=== PATIENT | male | born 1970 | race Caucasian/White ===

== ENCOUNTER 2020-07-31 09:44 | Emergency (ER) | payer SELFPAY ==
[~2020-07-31] VITALS: Ht 165.1 cm; Wt 70.5 kg
[2020-07-31] MEDS ORDERED: NAPR250T4 PO (09:53)
[2020-07-31] MEDS ORDERED: IBUP-2759 PO (09:53)
[2020-07-31] MEDS ORDERED: ACET-66 PO (09:53)
[2020-07-31 13:33] VITALS: BP 119/72
== END 2020-07-31 13:39 | disposition home or self-care (01) ==
LOC: EMS 09:49
DX: S86.811A Strain of other muscle(s) and tendon(s) at lower leg level, right leg, initial encounter (principal); F12.90 Cannabis use, unspecified, uncomplicated; Z79.899 Other long term (current) drug therapy; X50.9XXA Other and unspecified overexertion or strenuous movements or postures, initial encounter; Y93.89 Activity, other specified; Y92.89 Other specified places as the place of occurrence of the external cause; Y99.8 Other external cause status
CPT/HCPCS: 29505

== ENCOUNTER 2021-04-12 09:15 | Emergency (ER) | payer OTHER ==
[~2021-04-12] VITALS: Ht 165.1 cm; Wt 72.7 kg
[~2021-04-12 09:15] MED LIST: ACET-3385 PO; IBUP-2759 PO; NAPR-1197 PO
[2021-04-12] MEDS ORDERED: MORPHINE SULFATE 4 MG/ML SYRINGE IVP ONE (10:15)
[2021-04-12] MEDS ORDERED: ONDANSETRON HCL 4 MG/2 ML VIAL IVP ONE (10:15)
[2021-04-12 10:43] LABS: BASOPHILS % (AUTO) 0.9 % (0.0-2.0); EOSINOPHILS % (AUTO) 1.8 % (1.0-6.0); HEMATOCRIT 45.6 % (41-53); HEMOGLOBIN 15.2 g/dL (13.5-17.5); LYMPHOCYTES # (AUTO) 1.7 K/uL (1.0-4.8); LYMPHOCYTES % (AUTO) 37.2 % (22.0-44.0); MEAN CORPUSCULAR HEMOGLOBIN 28.7 pg (26.0-34.0); MEAN CORPUSCULAR HGB CONC 33.4 G/dL (31.0-37.0); MEAN CORPUSCULAR VOLUME 86 fL (80-100); MONOCYTES # (AUTO) 0.4 K/uL (0.1-1.0); MONOCYTES % (AUTO) 9.1 % (2.0-9.0); NEUTROPHILS # (AUTO) 2.4 K/uL (1.8-7.7); PLATELET COUNT (AUTO) 267 K/uL (150-450); RED BLOOD CELL COUNT(AUTO) 5.32 MIL/uL (4.50-5.90); RED CELL DISTRIBUTION WIDTH 14.1 % (11.5-14.5)
[2021-04-12 10:52] LABS: ANION GAP 4 mmol/L (8-16); CARBON DIOXIDE 30 mmol/L (22-29); CHLORIDE 108 mmol/L (98-107); GLOMERULAR FILTR. RATE CALC > 60 mL/min (>60); GLUCOSE,RANDOM 81 mg/dL (70-110); POTASSIUM 4.3 mmol/L (3.5-5.1); SODIUM SERUM 142 mmol/L (136-145); UREA NITROGEN, BLOOD 12 mg/dL (7-18)
[2021-04-12] MEDS ORDERED: IOHEXOL 350 MG/ML 150 ML VIAL ONE (10:56)
[2021-04-12] MEDS ORDERED: SODIUM CHLORIDE 0.9% 100 ML ONE (10:56)
[2021-04-12 10:58] LABS: ALANINE AMINOTRANSFERASE 51 U/L (12-78); ALBUMIN 3.8 g/dL (3.4-5.0); ALKALINE PHOSPHATASE 122 U/L (46-116); ASPARTATE AMINOTRANSFERASE 18 U/L (15-37); BILIRUBIN,TOTAL 0.2 mg/dL (0.1-1.0); TOTAL PROTEIN, SERUM 7.2 g/dL (6.4-8.2)
[2021-04-12 10:59] LABS: PROTHROMBIN TIME 10.7 SEC (9.4-11.6)
[2021-04-12 11:16] LABS: APPEARANCE,URINE CLEAR (CLEAR); BILIRUBIN,URINE NEGATIVE (NEGATIVE); GLUCOSE, URINE (UA) NEGATIVE (NEGATIVE); KETONES,URINE NEGATIVE (NEGATIVE); LEUKOCYTE ESTERASE ,URINE NEGATIVE (NEGATIVE); NITRATE,URINE NEGATIVE (NEGATIVE); OCCULT BLOOD,URINE NEGATIVE (NEGATIVE); PROTEIN,URINE NEGATIVE (NEGATIVE); UROBILINOGEN,URINE 0.2 mg/dL (<=1.0)
[2021-04-12 13:01] VITALS: BP 130/91
== END 2021-04-12 13:14 | disposition home or self-care (01) ==
LOC: EMS 09:21
DX: S22.31XA Fracture of one rib, right side, initial encounter for closed fracture (principal); V89.2XXA Person injured in unspecified motor-vehicle accident, traffic, initial encounter; Y93.89 Activity, other specified; Y92.488 Other paved roadways as the place of occurrence of the external cause; Y99.8 Other external cause status
CPT/HCPCS: 36415; 71260; 74177; 80053; 81003; 85025; 85610; 85730; 96374; 96375; 99285; A9575; J2270; J2405; J7050; 72193; 74160; 96361

== ENCOUNTER 2024-01-08 10:04 | Emergency (ER) | payer MEDICAID, OTHER ==
[~2024-01-08] VITALS: Ht 154.9 cm; Wt 65.9 kg
[~2024-01-08 10:04] MED LIST changes: -IBUP-2759 PO; +IBUP-45 PO
[2024-01-08 14:11] VITALS: TEMP 97.3
[2024-01-08 14:24] VITALS: BP 116/64; PULSE 72; RESP 16
== END 2024-01-08 14:20 | disposition home or self-care (01) ==
LOC: EMS 10:04
DX: S09.90XA Unspecified injury of head, initial encounter (principal); F12.90 Cannabis use, unspecified, uncomplicated; X58.XXXA Exposure to other specified factors, initial encounter; Y93.89 Activity, other specified; Y92.89 Other specified places as the place of occurrence of the external cause; Y99.8 Other external cause status
CPT/HCPCS: 70450; 99284

== ENCOUNTER 2024-11-07 19:54 | Emergency (ER) | payer MEDICAID ==
[~2024-11-07] VITALS: Ht 152.4 cm; Wt 72.7 kg
[2024-11-07 20:00] VITALS: BP 136/73; PULSE 130; RESP 18; TEMP 98.4; O2SAT 98
[2024-11-07] MEDS ORDERED: CEPH-558 PO (20:25)
[2024-11-07] MEDS ORDERED: ACET-66 PO (20:25)
[2024-11-07] MEDS ORDERED: DOXY-354 PO (20:25)
[2024-11-07] MEDS: DOXYCYCLINE HYCLATE 100 MG TABLET PO ONE (20:45)
[2024-11-07] MEDS: CEPHALEXIN MONOHYDRATE 500 MG CAPSULE PO ONE (20:45)
[2024-11-07] MEDS: ACETAMINOPHEN 500 MG TABLET PO ONE (20:45)
[2024-11-07] MEDS: PERTUSS(ACELL),DIPH,TET/PF 0.5 ML SYRINGE [ADULT] IM. ONE (20:46)
== END 2024-11-07 21:00 | disposition home or self-care (01) ==
LOC: EMS 19:54
DX: L02.32 Furuncle of buttock (principal); F12.90 Cannabis use, unspecified, uncomplicated; F14.90 Cocaine use, unspecified, uncomplicated; Z98.890 Other specified postprocedural states
CPT/HCPCS: 90471; 90715; 99284

== ENCOUNTER 2025-06-23 00:28 | Emergency (ER) | payer MEDICAID ==
[~2025-06-23] VITALS: Ht 165.1 cm; Wt 70.5 kg
[~2025-06-23 00:28] MED LIST changes: -ACET-3385 PO; +ACET-66 PO; +CEPH-558 PO; +DOXY-354 PO; -IBUP-45 PO; -NAPR-1197 PO
[2025-06-23 00:29] VITALS: BP 102/71; PULSE 116; RESP 20; TEMP 99.1; O2SAT 97
[2025-06-23] MEDS ORDERED: DOXY-354 PO (03:18)
[2025-06-23] MEDS: DOXYCYCLINE HYCLATE 100 MG TABLET PO ONE (03:24)
== END 2025-06-23 03:36 | disposition home or self-care (01) ==
LOC: EMS 00:28
DX: L02.416 Cutaneous abscess of left lower limb (principal); L03.116 Cellulitis of left lower limb; F12.90 Cannabis use, unspecified, uncomplicated; F17.210 Nicotine dependence, cigarettes, uncomplicated; F15.90 Other stimulant use, unspecified, uncomplicated; Z79.899 Other long term (current) drug therapy; Z98.1 Arthrodesis status; W57.XXXA Bitten or stung by nonvenomous insect and other nonvenomous arthropods, initial encounter
CPT/HCPCS: 99283